=== PATIENT | male | born 1995 | race Caucasian/White ===

== ENCOUNTER 2016-06-19 01:09 | Emergency (ER) | payer BC ==
[~2016-06-19] VITALS: Ht 177.8 cm; Wt 54.5 kg
[~2016-06-19 01:09] MED LIST: AMOXICILLIN 8751 TAB PO; NO HOME MEDICATIONS; PERCOCET 325 MG1 TA2 PO; ZOLOFT 25MG25 MG PO
[2016-06-19 01:10] VITALS: TEMP 96.7
[2016-06-19] MEDS ORDERED: AMOXICILLIN 8751 TAB PO (03:19)
[2016-06-19] MEDS ORDERED: NORCO 325 MG-51 TAB PO (03:19)
[2016-06-19 03:42] VITALS: BP 124/87; PULSE 70
== END 2016-06-19 03:47 | disposition home or self-care (01) ==
LOC: COL.ER 01:09
DX: S02.40DA Maxillary fracture, left side, initial encounter for closed fracture (principal); S02.32XA Fracture of orbital floor, left side, initial encounter for closed fracture; S01.412A Laceration without foreign body of left cheek and temporomandibular area, initial encounter; S00.12XA Contusion of left eyelid and periocular area, initial encounter; S00.81XA Abrasion of other part of head, initial encounter; Y04.0XXA Assault by unarmed brawl or fight, initial encounter; Y92.009 Unspecified place in unspecified non-institutional (private) residence as the place of occurrence of the external cause; Z23 Encounter for immunization

== ENCOUNTER 2020-11-03 03:55 | Observation (INO) | payer BC ==
[~2020-11-03] VITALS: Ht 177.8 cm; Wt 68.2 kg
[2020-11-03] VITALS (7 sets, daily range): BP systolic 100–124; BP diastolic 56–74; PULSE 74–94; TEMP 98.1–98.7
[~2020-11-03 03:55] MED LIST changes: +NORCO 325 MG-51 TAB PO
[2020-11-03 04:21] LABS: HEMATOCRIT 43.1 % (42.0-52.0); HEMOGLOBIN 15.2 g/dl (13.5-18.0); MEAN CELL VOLUME 90 fl (80.0-100.0); MEAN CORPUSCULAR HEMOGLOBIN 32 pg (27.0-31.0); MEAN CORPUSCULAR HGB CONC 35 g/dl (33.0-37.0); MEAN PLATELET VOLUME 9.1 fl (7.4-10.4); PLATELET COUNT 294 K/mm3 (130-400); RED BLOOD COUNT 4.78 M/mm3 (4.20-5.60); REDCELL DISTRIBUTION WIDTH-CV 12.6 % (11.5-14.5)
[2020-11-03 04:37] LABS: ALBUMIN 4.2 gm/dL (3.5-5.0); BILIRUBIN,TOTAL 0.4 mg/dL (0.2-1.2); C-REACTIVE PROTEIN 0.5 mg/dL (0.00-0.50); CALCIUM 9.6 mg/dL (8.4-10.2); CREATININE, serum 1.05 mg/dL (0.72-1.25); POTASSIUM 3.9 mmol/L (3.5-4.5); TOTAL PROTEIN 7.2 gm/dL (6.2-8.1)
[2020-11-03 05:19] LABS: BAND 7 % (0-10); EOSINOPHIL 3 % (0-4); LYMPHOCYTE 13 % (20.0-51.0); NEUTROPHILS 70 % (42.0-75.2)
[2020-11-03 05:20] LABS: PLATELET ESTIMATE NORMAL (NORMAL)
[2020-11-03 06:22] LABS: COLLECTION METHOD CLEAN CATCH
[2020-11-03 06:37] LABS: MUCOUS Present /lpf; PH 7 (5-8); SQUAMOUS EPITHELIAL None Seen /hpf; URINE APPEARANCE Clear; URINE BACTERIA None Seen /hpf; URINE BILIRUBIN Negative (NEGATIVE); URINE BLOOD Negative (NEGATIVE); URINE COLOR Yellow; URINE GLUCOSE Negative (NEGATIVE); URINE KETONE Trace (NEGATIVE); URINE LEUKOCYTE ESTERASE Negative (NEGATIVE); URINE NITRATE Negative (NEGATIVE); URINE PROTEIN(semi-quant) Negative (NEGATIVE); URINE RBC 0-2 /hpf; URINE UROBILINOGEN Negative (NEGATIVE); URINE WBC None Seen /hpf
--- NOTE | 2020-11-03 09:00 | NUR ---
Patient alert and oriented, answers questions appropriately. See initial assessment. NPO since 0200. Visiting policy extensively reviewed with patient, including one patient per visitor per hospital stay, verbalizes understanding, states his mother Fatimah would be his visitor.
--- NOTE | 2020-11-03 09:34 | NUR ---
Initial visit; Patient thanked Recreation Officer for looking in on him and offering God's blessings.
--- NOTE | 2020-11-03 09:49 | NUR ---
JEOVANY met with the patient and his father, Ameya, to discuss discharge plan. The patient lives in [place] with a roommate. He is a student at [employer]. He reports independence with ADLs and does not have any DME. The patient's PCP is Dr. Cyrus Mclaughlin and he receives his medications from [facility]. The patient does not have a DPOA-HC. His parents: Fatimah (ph#[phone]) and Ameya live in [place]. The patient plans to return home with his roommate upon discharge. The patient and his father were interested in SW notifying his school of his admission. JEOVANY contacted Jorge with student affairs at [employer] and notified him of the patient's admission. No additional needs at this time. *Discharge plan: home with roommate*
--- NOTE | 2020-11-03 11:28 | NUR ---
Chlorhexadine shower completed at this time.
--- NOTE | 2020-11-03 13:34 | NUR ---
Patient to surgery with surgical staff at this time.
[2020-11-03] MEDS ORDERED: NORCO 325 MG-51 TAB PO (14:41)
--- NOTE | 2020-11-03 15:53 | NUR ---
Patient returns post op from lap appy at 1530. Assessment unchanged except lap sites x3 to abdomen, edges well approximated. Bowel sounds hypoactive. No c/o at this time.
--- NOTE | 2020-11-03 16:23 | NUR ---
Patient agitated, aggressive. States "I need to get out of here, that's my goal." Reviewed post of process with patient and parent. Patients mom states "We need to speed this process out so we can go". Of note, security was called earlier in the day, as patient and parents ignored the visitor policy and were adamant they would both remain in the facility with the patient, despite being told only one patient per visitor, per hospital stay.
--- NOTE | 2020-11-03 17:06 | NUR ---
Attempted to reviewed discharge paperwork with patient, patient states "you can go over that, but the truth is, I'm not listening and I'm not going to every look at it, I just want to leave". Mother states "He's having nicotine withdraws". Patient then becomes verbally aggressive to parent. Patient signed discharged paperwork, walked patient to elevator. Discharged ambulatory at 1705.
== END 2020-11-03 17:05 | disposition home or self-care (01) ==
LOC: COL.ER 03:55 → SURG 06:44
PROVIDERS: Emergency Medicine; ADMIT Surgery
DX: K35.80 Unspecified acute appendicitis (principal); F17.210 Nicotine dependence, cigarettes, uncomplicated; Z20.822 Contact with and (suspected) exposure to COVID-19
CPT/HCPCS: G0378; J0690; J1100; J1885; J2270; J2405; J2543; J2704; J3010; J7030; J7120; Q9967